=== PATIENT | female | born 1980 | race Caucasian/White ===

== ENCOUNTER 2024-08-09 23:08 | Emergency (ER) | payer BC ==
[~2024-08-09] VITALS: Ht 160 cm; Wt 112.6 kg
[2024-08-09] MEDS ORDERED: AMOX875T10 PO (23:58)
[2024-08-10] MEDS: amoxicillin 250mg capsule PO STA (00:16)
[2024-08-10 00:18] VITALS: BP 180/94; PULSE 98; RESP 16; TEMP 98.1; O2SAT 98
== END 2024-08-10 00:24 | disposition home or self-care (01) ==
LOC: ER 23:10
DX: K05.10 Chronic gingivitis, plaque induced (principal)
CPT/HCPCS: 99283

== ENCOUNTER 2025-03-12 22:47 | Emergency (ER) | payer BC ==
[~2025-03-12] VITALS: Ht 157.5 cm; Wt 109.1 kg
[2025-03-13] MEDS: diphenhydrAMINE 25mg capsule PO ONE (01:31)
[2025-03-13] MEDS ORDERED: ibuprofen tablet 400 MG TABLET PO ONE (04:15)
--- NOTE | 2025-03-13 04:17 | Physician Documentation ---
History of Present Illness ~ Chief Complaint: Bite-insect Stated Complaint: INSECT BITE Time Seen by MD: 04:16 HPI Patient presents to the emergency room for evaluation of reported spider bite. She states she saw the spider and it was brown. She was unable to take anything for pain prior to visit. Patient has pain and redness to the area of the bite. No fevers. No shortness of breath. Tetanus within 5 years?: Yes Medication Reconciliation Allergies: Coded Allergies: No Known Allergies (Unverified , 08/09/24) Past Medical History Smoking Status: Never smoker Review of Systems ROS All review of systems negative except as per HPI Physical Exam Vital Signs: Temperature: 99.6, Heart Rate: 104, Respiratory Rate: 18, BP: 189/109, Pulse Oximetry: 96, Weight: 109.090 Oxygen Flow Rate: 0 Physical Exam General: Patient is awake, alert, oriented x4 in no acute distress, anxious Head: Normocephalic and atraumatic. Eyes: Conjunctival normal. EOMI. PERRL. ENT: Mucous membranes moist. Neck: Supple, trachea is midline. Chest: Clear to auscultation bilaterally without rales, rhonchi, or wheezes. There is no accessory muscle use or retractions. On top of right breast there is an area of erythema without fluctuance measuring 3 cm x 3 cm. Cardiac: RRR without murmurs, gallops, or rubs. Progress Results/Orders Results/Orders Orders - DILLAN NIETO MD Ibuprofen Tablet (Motrin Tablet) (03/13/25 04:20) Completed Orders - DILLAN NIETO MD Diphenhydramine Capsule (Benadryl Capsul (03/13/25 01:30) Ibuprofen Tablet (Motrin Tablet) (03/13/25 04:15) Ibuprofen Tablet (Motrin Tablet) (03/13/25 04:15) Medications Received in ER Medications (Trade) Dose Ordered Sig/Al Route PRN Reason Start Time Stop Time Status Last Admin Dose Admin (Benadryl capsule) 25 mg ONCE ONCE PO 03/13/25 01:30 03/13/25 01:31 DC 03/13/25 01:31 25 MG Vital Signs 03/12/25 23:04 Temp 99.6 Pulse 104 Resp 18 B/P (MAP) 189/109 Pulse Ox 96 O2 Flow Rate 0 Medical Decision Making Findings Patient presented to the emergency room with report of spider bite as per HPI. Differentials include but are not limited to spider bite, insect bite, MRSA, a bscess. Patient's vitals are stable and physical exam is reassuring. I do not suspect abscess. We will treat for spider bite. Patient endorses history of MRSA therefore we will cover her. Departure Disposition: HOME / SELF CARE / HOMELESS Impression: Primary Impression: Spider bite Condition: Stable Discharge Instructions: Insect Bite, Adult, [place] Departure Forms: Excuse form Work or School Excused From: Work Excuse beginning now through the following date: March 16, 2025 May Return but still avoid physical Activity from now until: March 16, 2025 May Return to full physical activity as of: March 16, 2025 Referrals: NO PRIMARY CARE PROVIDER (PCP) Prescriptions Clindamycin (Cleocin ) 150 Mg Capsule 1 CAP PO Q8H for 10 Days, #30 CAP Prov: DILLAN NIETO MD 03/13/25 Education Educated: Patient Educated regarding: diagnosis, treatment, need for follow up Signature Scribe Signature: No scribe Attestation: The note accurately reflects work and decisions made by me.Dillan Nieto MD 03/13/25 04:26 DILLAN NIETO MD March 13, 2025 04:17
[2025-03-13] MEDS: ibuprofen 200mg tablet PO ONE ×2 (04:22)
[2025-03-13] MEDS: ondansetron 4mg rapidly disintigrating tab PO ONE (04:24)
[2025-03-13] MEDS: HYDROcodone/acetaminophen 5mg/325mg tablet PO ONE (04:25)
[2025-03-13] MEDS: clindamycin 150mg capsule PO ONE (04:25)
[2025-03-13] MEDS ORDERED: CLIN150C2 PO (04:26)
[2025-03-13 04:34] VITALS: BP 172/90; PULSE 96; RESP 18; TEMP 98.6; O2SAT 99
== END 2025-03-13 04:35 | disposition home or self-care (01) ==
LOC: ER 22:47
DX: S21.051A Open bite of right breast, initial encounter (principal); W57.XXXA Bitten or stung by nonvenomous insect and other nonvenomous arthropods, initial encounter; Y93.89 Activity, other specified; Y92.89 Other specified places as the place of occurrence of the external cause; Y99.8 Other external cause status
CPT/HCPCS: 99284; Q0163